=== PATIENT | male | born 1965 | race African-American/Black ===

== ENCOUNTER 2017-05-10 06:25 | Emergency (ER) | payer OTHER ==
[~2017-05-10] VITALS: Ht 182.9 cm; Wt 81.6 kg
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
[2017-05-10 07:23] LABS: ABSOLUTE BASOPHIL COUNT 0.1 /CUMM (0.0-0.2); ABSOLUTE EOSINOPHIL COUNT 0.3 /CUMM (0.0-0.7); ABSOLUTE GRANULOCYTE CT 2.9 /CUMM (1.4-6.5); ABSOLUTE LYMPH COUNT 4.7 /CUMM (1.2-3.4); ABSOLUTE MONOCYTE COUNT 0.9 /CUMM (0.10-0.60); BASOPHIL % 0.7 % (0.0-2.0); EOSINOPHIL % 2.9 % (0-5); GRANULOCYTE % 32.7 % (42.2-75.2); HEMATOCRIT 40.5 % (42-52); MEAN CORPUSCULAR HGB 29.6 PG (27.0-31.0); MEAN CORPUSCULAR HGB CONC 32.7 G/DL (33.0-37.0); MEAN CORPUSCULAR VOLUME 90.5 FL (80.0-94.0); PLATELET COUNT 247 /CUMM (130-400); RBC DISTRIBUTION WIDTH 12.7 % (11.5-14.5); RED BLOOD CELL CT 4.47 /CUMM (4.70-6.10); WHITE BLOOD CELL COUNT 8.8 /CUMM (4.8-10.8)
[2017-05-10 07:51] VITALS: BP 128/81
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
== END 2017-05-10 08:38 ==
LOC: ERH 06:25
PROVIDERS: Pediatrics
DX: R56.9 Unspecified convulsions (principal)
CPT/HCPCS: 80307; 96374; G0480; J1953